=== PATIENT | female | born 1985 | race Caucasian/White ===

== ENCOUNTER 2018-10-23 11:53 | Emergency (ER) | payer BC, SELFPAY ==
[2018-10-23] MEDS ORDERED: NA CHLORIDE 0.9% 1,000 ML ONE (13:04)
[2018-10-23 13:10] LABS: Absolute Lymphocytes (CBC) 1.4 K/uL (0.7-4.9); Basophils % 0.4 % (0-1.3); Hematocrit 35.9 % (36.0-45.0); Lymphocytes % 18.5 % (15.3-44.8); MPV 8.1 fL (7.6-11.3); RBC Red Blood Cell Count 3.97 M/uL (3.86-4.86)
[2018-10-23 13:31] LABS: ALT/SGPT 33 U/L (12-78); AST/SGOT 16 U/L (15-37); Albumin 3.7 g/dL (3.4-5.0); Alkaline Phosphatase 69 U/L (45-117); BUN Blood Urea Nitrogen 10 mg/dL (7-18); Bicarbonate 27 mmol/L (21-32); Bilirubin Direct 0.1 mg/dL (0-0.2); Bilirubin Total 0.4 mg/dL (0.2-1.0); Glucose Level 95 mg/dL (74-106); Lipase 90 U/L (73-393); Potassium 3.6 mmol/L (3.5-5.1); Protein, Total 7.4 g/dL (6.4-8.2); Sodium Level 143 mmol/L (136-145)
[2018-10-23 13:49] LABS: Urine Blood 1+ (NEG); Urine Glucose NEGATIVE (NEG); Urine Protein NEGATIVE (NEG); Urine Specific Gravity 1.025 (1.005-1.030); Urine pH 5.5 (5.0-7.0)
--- NOTE | 2018-10-23 14:18 | RAD REPORT ---
EXAM DESCRIPTION: CT - Abdomen Pelvis W Contrast - 10/23/2018 1:57 pm CLINICAL HISTORY: Abdominal pain with diarrhea COMPARISON: 2008 TECHNIQUE: Computed axial tomography of the abdomen pelvis was obtained. 100 cc Isovue-300 was admin istered intravenously. Oral contrast was not requested which limits evaluation of bowel. All CT scans are performed using dose optimization technique as appropriate and may include automated exposure control or mA/KV adjustment according to patient size. FINDINGS: The liver, spleen, pancreas, adrenal and kidneys appear unremarkable. There is no evidence of diverticulitis. Fluid within nondilated small bowel. An IUD within the uterus. Mild anterior subluxation L5 on S1. Spondylolysis L5 IMPRESSION: Fluid within nondilated small bowel may indicate an enteritis
[2018-10-23] MEDS ORDERED: DICYCLOMINE HCL 10 MG CAP ONE (14:24)
--- NOTE | 2018-10-23 14:25 | EDPHYS ---
Physician Documentation [facility] Name: Nicci Ortiz Age: 33 yrs Sex: Female : 1985 Arrival Date: 10/23/2018 Time: 12:06 Bed 19 Private MD: ED Physician Norris Hawkins HPI: 10/23 12:28 This 33 yrs old Female presents to ER via Ambulatory with complaints of jmm Abdominal Pain, Diarrhea, Low Back Pain. 12:28 The patient presents with abdominal pain. Onset: The symptoms/episode began/occurred jmm gradually, 11 day(s) ago. The symptoms do not radiate. Associated signs and symptoms: Pertinent positives: dysuria, Pertinent negatives: vomiting. This is a 33 year old female with no chronic medical conditions that presents to the ED with complaints of generalized abdominal cramping, diarrhea beginning apprx 11 days ago. Patient states she recently traveled to [facility] but symptoms began prior to the trip. Patient denies recent abx use. . CLINICAL LIAISON: 12:20 LMP N/A - control method ss Historical: - Allergies: 12:20 No Known Allergies; ss - Home Meds: 12:20 None [Active]; ss - PMHx: 12:20 None; ss - PSHx: 12:20 None; ss - Immunization history:: Adult Immunizations up to date. - Social history:: Smoking status: Patient uses tobacco products, smokes one pack cigarettes per day. - Ebola Screening: : Patient denies exposure to infectious person Patient denies travel to an Ebola-affected area in the 21 days before illness onset. ROS: 12:28 Constitutional: Negative for fever, chills, and weight loss, Cardiovascular: Negative jmm for chest pain, palpitations, and edema, Respiratory: Negative for shortness of breath, cough, wheezing, and pleuritic chest pain. 12:28 Abdomen/GI: Positive for abdominal pain, diarrhea. 12:28 All other systems are negative. Exam: 12:28 Constitutional: This is a well developed, well nourished patient who is awake, alert, jmm and in no acute distress. Head/Face: atraumatic. Eyes: EOMI, no conjunctival erythema appreciated ENT: Moist Mucus Membranes Neck: Trachea midline, Supple Chest/axilla: Normal chest wall appearance and motion. Cardiovascular: Regular rate and rhythm. No edema appreciated Respiratory: Normal respirations, no respiratory distress appreciated 12:28 Back: Normal ROM Skin: General appearance color normal MS/ Extremity: Moves all extremities, no obvious deformities appreciated, no edema noted to the lower extremities Neuro: Awake and alert, normal gait Psych: Behavior is normal, Mood is normal, Patient is cooperative and pleasant 12:28 Abdomen/GI: Inspection: abdomen appears normal, Bowel sounds: normal, Palpation: soft, nontender, in all quadrants, rebound tenderness, is not appreciated, voluntary guarding, is not appreciated, involuntary guarding, is not appreciated, Indicators: McBurney's point is not tender. Vital Signs: 12:20 BP 116 / 66; Pulse 85; Resp 15; Temp 98.3(TE); Pulse Ox 99% on R/A; Weight 86.18 kg; ss Height 5 ft. 7 in. (170.18 cm); Pain 6/10; 12:55 BP 109 / 76; Pulse 71; Resp 18; Pulse Ox 99% on R/A; em 14:00 BP 118 / 68; Pulse 75; Resp 18; Pulse Ox 100% on R/A; em 12:20 Body Mass Index 29.76 (86.18 kg, 170.18 cm) ss MDM: 12:28 Patient medically screened. alexa 14:22 Data reviewed: vital signs, nurses notes. Counseling: I had a detailed discussion with no the patient and/or guardian regarding: the historical points, exam findings, and any diagnostic results supporting the discharge/admit diagnosis, lab results, radiology results, the need for outpatient follow up, to return to the emergency department if symptoms worsen or persist or if there are any questions or concerns that arise at home. ED course: Patient is advised to follow up with GI for further evaluation. Patient is given early appendicitis return precautions. Patient has no peritoneal signs on discharge. Patient understood and agrees with the plan of care. . 10/23 12:30 Order name: Basic Metabolic Panel [facility] 10/23 12:30 Order name: CBC with Diff; Complete Time: 13:45 [facility] 10/23 12:30 Order name: Creatinine for Radiology; Complete Time: 13:45 [facility] 10/23 12:30 Order name: Hepatic Function; Complete Time: 13:45 [facility] 10/23 12:30 Order name: Lipase; Complete Time: 13:45 [facility] 10/23 12:32 Order name: Basic Metabolic Panel; Complete Time: 13:45 [facility] 10/23 12:30 Order name: IV Saline Lock; Complete Time: 12:59 [facility] 10/23 12:30 Order name: Labs collected and sent; Complete Time: 12:59 [facility] 10/23 12:30 Order name: Urine Dipstick-Ancillary (obtain specimen); Complete Time: 12:59 [facility] 10/23 12:30 Order name: CT Abd/Pelvis - IV Contrast Only; Complete Time: 14:19 [facility] 10/23 13:12 Order name: Urine Dipstick--Ancillary (enter results); Complete Time: 13:59 10/23 13:12 Order name: Urine --Ancillary (enter results); Complete Time: 13:59 10/23 12:30 Order name: Urine Test (obtain specimen); Complete Time: 12:59 [facility] Administered Medications: 12:50 Drug: NS 0.9% 1000 ml Route: IV; Rate: 1 bolus; Site: right antecubital; em 14:58 Follow up: IV Status: Completed infusion; IV Intake: 1000ml em 14:10 Drug: Bentyl 20 mg Route: PO; em 14:58 Follow up: Response: No adverse reaction; Pain is decreased em Disposition: 15:12 Co-signature as Attending Physician, Norris Hawkins MD I agree with the assessment and johnnie plan of care. Disposition: 10/23/18 14:24 Discharged to Home. Impression: Diarrhea, unspecified. - Condition is Stable. - Discharge Instructions: Food Choices to Help Relieve Diarrhea, Adult, Diarrhea, Adult. - Prescriptions for Bentyl 20 mg Oral Tablet - take 1 tablet by ORAL route every 6 hours As needed; 20 tablet. - Medication Reconciliation Form, Thank You Letter, Antibiotic Education, Prescription Opioid Use form. - Follow up: Tung Celis MD; When: 2 - 3 days; Reason: Recheck today's complaints, Continuance of care, Re-evaluation by your physician. Signatures: Dispatcher [employer] Norris Cotton MD MD cha Mickail, Joel, PA PA Parth Whittaker, DRAGLINE OPERATOR DRAGLINE OPERATOR em Dorothy Estrada RN RN ss Corrections: (The following items were deleted from the chart) 14:59 14:24 10/23/2018 14:24 Discharged to Home. Impression: Diarrhea, unspecified. Condition em is Stable. Forms are Medication Reconciliation Form, Thank You Letter, Antibiotic Education, Prescription Opioid Use. Follow up: Tung Celis; When: 2 - 3 days; Reason: Recheck today's complaints, Continuance of care, Re-evaluation by your physician. no
--- NOTE | 2018-10-23 14:25 | ER ---
Nurse's Notes [facility] Name: Nicci Ortiz Age: 33 yrs Sex: Female : 1985 Arrival Date: 10/23/2018 Time: 12:06 Bed 19 Private MD: Diagnosis: Diarrhea, unspecified Presentation: 10/23 12:19 Presenting complaint: Patient states: lower back pain, abd cramping and diarrhea x 11 ss days. Transition of care: patient was not received from another setting of care. Onset of symptoms was October 12, 2018. Risk Assessment: Do you want to hurt yourself or someone else? Patient reports no desire to harm self or others. Initial Sepsis Screen: Does the patient meet any 2 criteria? No. Patient's initial sepsis screen is negative. Does the patient have a suspected source of infection? No. Patient's initial sepsis screen is negative. Care prior to arrival: None. 12:19 Method Of Arrival: Ambulatory ss 12:19 Acuity: MATILDA 3 ss URBAN RENEWAL MANAGER: 12:20 LMP N/A - control method ss Historical: - Allergies: 12:20 No Known Allergies; ss - Home Meds: 12:20 None [Active]; ss - PMHx: 12:20 None; ss - PSHx: 12:20 None; ss - Immunization history:: Adult Immunizations up to date. - Social history:: Smoking status: Patient uses tobacco products, smokes one pack cigarettes per day. - Ebola Screening: : Patient denies exposure to infectious person Patient denies travel to an Ebola-affected area in the 21 days before illness onset. Screenin:45 Abuse screen: Denies threats or abuse. Nutritional screening: No deficits noted. em Tuberculosis screening: No symptoms or risk factors identified. Fall Risk None identified. Assessment: 12:45 General: Appears in no apparent distress. comfortable, Behavior is calm, cooperative, em Denies fever. Pain: Complains of pain in abdomen Pain currently is 6 out of 10 on a pain scale. Neuro: Level of Consciousness is awake, alert, obeys commands, Oriented to person, place, time, situation. Cardiovascular: Capillary refill < 3 seconds Patient's skin is warm and dry. Respiratory: Airway is patent Respiratory effort is even, unlabored, Respiratory pattern is regular, symmetrical. GI: Abdomen is flat, Bowel sounds present X 4 quads. Abd is soft X 4 quads Abdomen is tender to palpation X 4 quads. Reports cramping, diarrhea, Patient currently denies nausea, vomiting. Derm: Skin is intact, is healthy with good turgor, Skin is pink, warm \T\ dry. Musculoskeletal: Capillary refill < 3 seconds, Range of motion: intact in all extremities. 13:10 Reassessment: Patient appears in no apparent distress at this time. Patient and/or iw family updated on plan of care and expected duration. Pain level reassessed. I agree with above assessment by Parth Hughes LVN. 13:35 Reassessment: Patient appears in no apparent distress at this time. Patient and/or em family updated on plan of care and expected duration. Pain level reassessed. Patient is alert, oriented x 3, equal unlabored respirations, skin warm/dry/pink. 14:57 Reassessment: Patient appears in no apparent distress at this time. Patient and/or em family updated on plan of care and expected duration. Pain level reassessed. Patient is alert, oriented x 3, equal unlabored respirations, skin warm/dry/pink. Vital Signs: 12:20 BP 116 / 66; Pulse 85; Resp 15; Temp 98.3(TE); Pulse Ox 99% on R/A; Weight 86.18 kg; ss Height 5 ft. 7 in. (170.18 cm); Pain 6/10; 12:55 BP 109 / 76; Pulse 71; Resp 18; Pulse Ox 99% on R/A; em 14:00 BP 118 / 68; Pulse 75; Resp 18; Pulse Ox 100% on R/A; em 12:20 Body Mass Index 29.76 (86.18 kg, 170.18 cm) ED Course: 12:06 Patient arrived in ED. as 12:20 Triage completed. 12:20 Arm band placed on right wrist. 12:24 Freddie Sam PA is PHCP. [facility] 12:24 Norris Hawkins MD is Attending Physician. [facility] 12:39 Parth Hughes LVN is Primary Nurse. em 12:45 Patient has correct armband on for positive identification. Placed in gown. Bed in low em position. Call light in reach. Pulse ox on. NIBP on. 12:50 Initial lab(s) drawn, by me, sent to lab. Inserted saline lock: 20 gauge in right em antecubital area, using aseptic technique. Blood collected. 13:59 CT Abd/Pelvis - IV Contrast Only In Process Unspecified. EDMS 14:24 Tung Celis MD is Referral Physician. m 14:57 No provider procedures requiring assistance completed. IV discontinued, intact, em bleeding controlled, No redness/swelling at site. Pressure dressing applied. Administered Medications: 12:50 Drug: NS 0.9% 1000 ml Route: IV; Rate: 1 bolus; Site: right antecubital; em 14:58 Follow up: IV Status: Completed infusion; IV Intake: 1000ml em 14:10 Drug: Bentyl 20 mg Route: PO; em 14:58 Follow up: Response: No adverse reaction; Pain is decreased em Intake: 14:58 IV: 1000ml; Total: 1000ml. em Outcome: 14:24 Discharge ordered by . m 14:57 Discharged to home ambulatory. em 14:57 Condition: good 14:57 Discharge instructions given to patient, Instructed on discharge instructions, follow up and referral plans. medication usage, Demonstrated understanding of instructions, follow-up care, medications, Prescriptions given X 1. 14:59 Patient left the ED. em Signatures: Dispatcher [employer] EDMS Freddie Sam PA PA [facility] Parth Hughes, CAT SKINNER CAT SKINNER em Margaret Kang Irene, RN INGRID iw Dorothy Estrada RN RN ss
== END 2018-10-23 14:59 | disposition home or self-care (01) ==
LOC: ER 11:53
DX: R19.7 Diarrhea, unspecified (principal); R10.9 Unspecified abdominal pain; F17.210 Nicotine dependence, cigarettes, uncomplicated
CPT/HCPCS: 36415; 74177; 80048; 80076; 81003; 81025; 83690; 85025; 96360; 96361; 99284; J7030; Q9967